=== PATIENT | male | born 1990 | race African-American/Black ===

== ENCOUNTER 2022-04-19 22:47 | Emergency (ER) | payer SELFPAY ==
[~2022-04-19] VITALS: Ht 175.3 cm; Wt 63.6 kg
[2022-04-20] MEDS ORDERED: KETOROLAC TROMETHAMINE 30 MG/ML VIAL IM ONE (00:45)
[2022-04-20 02:31] VITALS: BP 125/76
== END 2022-04-20 02:34 | disposition home or self-care (01) ==
LOC: EMS 22:53
DX: M25.562 Pain in left knee (principal)
CPT/HCPCS: 99283; 29530; 96372; J1885